=== PATIENT | female | born 1995 | race Caucasian/White ===

== ENCOUNTER 2021-08-07 15:17 | Inpatient (IN) ==
[2021-08-07] MEDS ORDERED: Lactated Ringers 1000 ml BAG 1,000 ML IV ONE (17:08)
[2021-08-07] MEDS ORDERED: Buffered Lidocaine 1% SYRIN 1 ml INTRADERM ONE (17:08)
[2021-08-07 17:54] LABS: Urine Benzodiazepine Screen None Detected (None Detect); Urine Cannabinoids Screen None Detected (None Detect); Urine Opiates Screen None Detected (None Detect)
[2021-08-07] MEDS ORDERED: Lactated Ringers 1000 ml BAG 1,000 ML IV SCH (18:00)
[2021-08-07] MEDS ORDERED: Glycerin ADULT 2.4 gm SUPP PR PRN (18:51)
[2021-08-07] MEDS ORDERED: Dibucaine 1% OINT 28.35 GM TUBE PR PRN (18:51)
[2021-08-07] MEDS ORDERED: Witch Hazel PAD JAR TOPICAL PRN (18:51)
[2021-08-08 06:20] LABS: ABS Eosinophils 0.1 10^3/ul (0-0.6); ABS Lymphocytes 2.6 10^3/ul (1.0-4.8); ABS Monocytes 0.8 10^3/ul (0-0.8); ABS Neutrophils 10.7 10^3/ul (1.5-7.7); Eosinophil % 0.9 %; Hematocrit 30 % (35-47); Hemoglobin 9.5 g/dL (12.0-16.0); Lymphocyte % 18.2 %; Mean Corpuscular HGB Conc 32 g/dL (31-36); Mean Corpuscular Hemoglobin 30 pg (27-31); Mean Corpuscular Volume 92 fL (80-97); Mean Platelet Volume 8.2 fL (7.4-10.4); Nucleated Red Blood Cells % 0.1; Platelet Count 234 10^3/uL (150-450); Red Blood Count 3.21 10^6 /uL (3.70-4.87); Red Cell Distribution Width 14 % (10-15); White Blood Count 14.2 10^3/uL (3.5-10.8)
[2021-08-09 07:53] VITALS: BP 114/68
== END 2021-08-09 11:22 | disposition home or self-care (01) | DRG 560 ==
LOC: MCHOB 16:59
PROVIDERS: ADMIT Midwife; ATTEND Midwife